=== PATIENT | female | born 1995 | race Caucasian/White ===

== ENCOUNTER 2024-04-10 01:06 | Emergency (ER) | payer SELFPAY ==
[2024-04-10 01:10] VITALS: BP 178/86; PULSE 75; TEMP 36.4; O2SAT 98; BMI 44.3
--- NOTE | 2024-04-10 01:16 | PC.NURSE ---
complains of rash and itchy to her head from hair dye onset 4 days ago. this patient has used OTC but not helping. this patient voices no other complains and shows no signs of distress
--- NOTE | 2024-04-10 01:34 | ED.SKABFB1 ---
HPI - Skin/Abscess/Foreign Bdy General Chief complaint: Skin/Abscess/Foreign Body Stated complaint: allergic reaction Time Seen by Provider: 04/10/24 01:11 Source: patient Mode of arrival: walk-in Limitations: no limitations History of Present Illness HPI narrative: patient describes an allergic reaction of her face from her new hair dye. started yesterday. Took Benadryl and hydroxyzine without benefit. No shortness of breath or swelling. No systemic symptoms Related Data Allergies Allergy/AdvReac Type Severity Reaction Status Date / Time acetaminophen (From Percocet) Allergy Severe Anaphylaxis Verified 04/10/24 01:16 Iodinated Contrast Media Allergy Severe Anaphylaxis Verified 04/10/24 01:16 morphine Allergy Severe Anaphylaxis Verified 04/10/24 01:16 oxycodone (From Percocet) Allergy Severe Anaphylaxis Verified 04/10/24 01:16 Penicillins Allergy Severe Anaphylaxis Verified 04/10/24 01:16 shellfish derived Allergy Severe Anaphylaxis Verified 04/10/24 01:16 Sulfa (Sulfonamide Allergy Severe Anaphylaxis Verified 04/10/24 01:16 Antibiotics) latex AdvReac Intermediate Hives Verified 04/10/24 01:16 Review of Systems ROS Status of ROS 10 or more systems reviewed and unremarkable except as noted in history and below Exam Constitutional Vital Signs, click to edit/add: Last Vital Signs Temp 97.5 F L 04/10/24 01:10 Pulse 75 04/10/24 01:10 Resp 16 04/10/24 01:10 BP 178/86 H 04/10/24 01:10 Pulse Ox 98 04/10/24 01:10 O2 Del Method Room Air 04/10/24 01:10 Common normals: no apparent distress, oriented x3, no limitations, healthy appearing, alert and well nourished [facility] Head images:  1. erythematous rash on her face Eye Common normals: PERRL, EOMs intact bilaterally and conjunctivae normal Respiratory Common normals: normal respiratory effort, no retractions, no use of accessory muscles and clear to auscultation bilaterally Cardio Common normals: regular rate, regular rhythm, S1 normal heart sound and S2 normal heart sound Extremity Common normals: normal to inspection and full ROM Neuro Common normals: oriented x3, CN's II-XII intact bilaterally, moves all extremities and no focal motor deficits Psych Appearance: grossly normal Course Vital Signs Vital signs: Vital Signs Temperature 97.5 F L 04/10/24 01:10 Pulse Rate 75 04/10/24 01:10 Respiratory Rate 16 04/10/24 01:10 Blood Pressure 178/86 H 04/10/24 01:10 Pulse Oximetry 98 04/10/24 01:10 Oxygen Delivery Method Room Air 04/10/24 01:10 Temperature 97.5 F L 04/10/24 01:10 Pulse Rate 75 04/10/24 01:10 Respiratory Rate 16 04/10/24 01:10 Blood Pressure 178/86 H 04/10/24 01:10 Pulse Oximetry 98 04/10/24 01:10 Oxygen Delivery Method Room Air 04/10/24 01:10 MDM - Skin/Abscess/Foreign Bdy MDM Narrative Medical decision making narrative: patient presents with contact dermatitis rash of her face from new dye she used in her hair. Treated with solumedrol and discharged home with prescription of prednisone Discharge Plan Discharge Chief Complaint: Skin/Abscess/Foreign Body Clinical Impression: Contact dermatitis Patient Disposition: Home, Self-Care Print Language: Armenian Instructions: Contact Dermatitis (ED) Additional Instructions: follow up with your doctor next week continue to use benadryl 50mg up to 3 times per day to help clear rash Discharge Date/Time: 04/10/24 02:04
[2024-04-10] MEDS: METHYLPREDNISOLONE SOD SUCC PF 125 MG/2 ML VIAL IM (01:59)
--- NOTE | 2024-04-10 02:10 | PC.NURSE ---
i gave verbal and written discharge orders along with 1 Rx, this patient voices yes to understanding these. at time of discharge this patient voices no concerns and shows no signs of distress
== END 2024-04-10 02:04 | disposition home or self-care (01) ==
LOC: ER 02:04
PROVIDERS: Emergency Provider Internal Medicine
DX: L23.89 Allergic contact dermatitis due to other agents (principal)
CPT/HCPCS: 99284; J2919

== ENCOUNTER 2024-05-14 13:00 | Emergency (ER) | payer OTHER, SELFPAY ==
[2024-05-14 13:05] VITALS: BP 166/99; PULSE 75; TEMP 36.7; O2SAT 98; BMI 43.4
--- NOTE | 2024-05-14 13:27 | ED_ITS ---
HPI HPI - General Adult General Chief complaint: Upper Respiratory Infection Stated complaint: URTI COMPLAINTS Time Seen by Provider: 05/14/24 13:07 History of Present Illness HPI narrative: 29-year-old female presents for nasal congestion, pain on the left side of her face which goes into her teeth and pressure in her head. She think she might have a sinus infection and she has had these symptoms for more than 2 weeks. No fever or productive cough. No complaints of sore throat. 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 Related Data Previous Rx's ?Medication ?Instructions ?Recorded clindamycin HCl 300 mg capsule 300 mg PO Q6H 10 days #40 caps 05/14/24 loratadine 5 mg-pseudoephedrine ER 1 tab PO Q12H PRN nasal congestion 05/14/24 120 mg tablet,extended #20 tabs release,12hr (Claritin-D 12 Hour) Allergies Allergy/AdvReac Type Severity Reaction Status Date / Time acetaminophen (From Percocet) Allergy Severe Anaphylaxis Verified 04/10/24 01:16 Iodinated Contrast Media Allergy Severe Anaphylaxis Verified 04/10/24 01:16 morphine Allergy Severe Anaphylaxis Verified 04/10/24 01:16 oxycodone (From Percocet) Allergy Severe Anaphylaxis Verified 04/10/24 01:16 Penicillins Allergy Severe Anaphylaxis Verified 04/10/24 01:16 shellfish derived Allergy Severe Anaphylaxis Verified 04/10/24 01:16 Sulfa (Sulfonamide Allergy Severe Anaphylaxis Verified 04/10/24 01:16 Antibiotics) latex AdvReac Intermediate Hives Verified 04/10/24 01:16 Opioid HPI Opioid Management Most Recent Opioid Data: No Data to Display Review of Systems ROS Narrative A ten point review of systems is negative except as noted above. PFSH PFSH Social History Little interest or pleasure in doing things: not at all Feeling down, depressed, or hopeless: not at all Exam Narrative Exam Narrative: Nurses note and vital signs reviewed and patient is not hypoxic. General: The patient appears well and in no apparent distress. Patient is resting comfortably on cart. Skin: Warm, dry, no pallor noted. There is no rash noted. Head: Normocephalic, atraumatic Eye: Normal conjunctiva, no drainage Ears, Nose, Mouth, and Throat: oral mucosa is moist. Nares patent. Both TMs and both external canals are normal. Dental condition is poor with many areas of dental caries. There is no gingival swelling or erythema. No swelling to the floor of her mouth. Cardiovascular: Regular Rate and Rhythm Respiratory: Patient is in no distress, no accessory muscle use, lungs are clear to auscultation, no wheezing, rales or rhonchi Back: non-tender GI: Soft and nontender Musculoskeletal: The patient has no evidence of calf tenderness, no pitting edema, symmetrical pulses noted bilaterally Neurological: A&O, normal speech Psychiatric: Cooperative Constitutional Vital Signs, click to edit/add: Last Vital Signs Temp 98.1 F 05/14/24 13:05 Pulse 75 05/14/24 13:05 Resp 18 05/14/24 13:05 BP 166/99 H 05/14/24 13:05 Pulse Ox 98 05/14/24 13:05 O2 Del Method Room Air 05/14/24 13:05 Course Vital Signs Vital signs: Vital Signs Temperature 98.1 F 05/14/24 13:05 Pulse Rate 75 05/14/24 13:05 Respiratory Rate 18 05/14/24 13:05 Blood Pressure 166/99 H 05/14/24 13:05 Pulse Oximetry 98 05/14/24 13:05 Oxygen Delivery Method Room Air 05/14/24 13:05 Temperature 98.1 F 05/14/24 13:05 Pulse Rate 75 05/14/24 13:05 Respiratory Rate 18 05/14/24 13:05 Blood Pressure 166/99 H 05/14/24 13:05 Pulse Oximetry 98 05/14/24 13:05 Oxygen Delivery Method Room Air 05/14/24 13:05 Medical Decision Making [facility] Narrative Medical decision making narrative: My clinical impression is that she has sinusitis. She has had her symptoms for more than 2 weeks and I will prescribe an antibiotic. She states feeling to antibiotics that she can take her doxycycline and clindamycin. Treatment diagnosis and follow-up were discussed with the patient. Differential Diagnosis Differential Diagnosis: Sinusitis, otitis media, otitis externa Discharge Plan Discharge Chief Complaint: Upper Respiratory Infection Clinical Impression: Sinusitis Patient Disposition: Home, Self-Care Time of Disposition Decision: 13:26 Condition: Good Mode of Transportation: Private Vehicle Prescriptions / Home Meds: New clindamycin HCl 300 mg capsule 300 mg PO Q6H 10 Days Qty: 40 0RF Claritin-D 12 Hour 5-120 mg tablet extended release 12 hr 1 tab PO Q12H PRN (Reason: nasal congestion) Qty: 20 0RF Print Language: Maori Instructions: Sinusitis (ED) Referrals: Physician,Non-Staff, MD [Primary Care Provider] - 1 week
== END 2024-05-14 13:45 | disposition home or self-care (01) ==
PROVIDERS: Emergency Provider Emergency Medicine
DX: J32.9 Chronic sinusitis, unspecified (principal)
CPT/HCPCS: 99283

== ENCOUNTER 2024-06-11 14:50 | Emergency (ER) | payer OTHER, SELFPAY ==
[2024-06-11 15:03] VITALS: BP 116/76; PULSE 88; TEMP 36.7; O2SAT 98; BMI 43.4
--- NOTE | 2024-06-11 15:32 | ED_ITS ---
HPI - URI/Sore Throat General Chief Complaint: Upper Respiratory Infection Stated Complaint: SINUS INFECTION Time Seen by Provider: 06/11/24 14:55 Source: patient History of Present Illness HPI Narrative: Patient is a 29-year-old female who returns to the emergency department for continued sinus symptoms, ear pressure, cough with mucus production. She states she has had vomiting and diarrhea. She was treated in this emergency department 1 month ago with clindamycin. She has not had any fevers. She states she has Zofran at home and has been using it, she has been able to drink fluids for the last several hours without vomiting. She has no concern for . No medications taken prior to arrival today. Related Data Previous Rx's ?Medication ?Instructions ?Recorded fllcoyvbtqblqix-xpliyhpxckklizl-[id number] 10 ml PO Q6H PRN cold symptoms 06/11/24 2 mg-30 mg-10 mg/5 mL oral syrup #200 mL (Bromfed DM) levofloxacin 750 mg tablet 750 mg PO DAILY 5 days #5 tabs 06/11/24 methylprednisolone 4 mg tablets in See Rx Instructions .Route 06/11/24 a dose pack (Medrol (Rich)) .COMPLEX #21 ea promethazine 25 mg tablet 25 mg PO Q6H PRN nausea and 06/11/24 vomiting #12 tabs Allergies Allergy/AdvReac Type Severity Reaction Status Date / Time acetaminophen (From Percocet) Allergy Severe Anaphylaxis Verified 06/11/24 15:03 Iodinated Contrast Media Allergy Severe Anaphylaxis Verified 06/11/24 15:03 morphine Allergy Severe Anaphylaxis Verified 06/11/24 15:03 oxycodone (From Percocet) Allergy Severe Anaphylaxis Verified 06/11/24 15:03 Penicillins Allergy Severe Anaphylaxis Verified 06/11/24 15:03 shellfish derived Allergy Severe Anaphylaxis Verified 06/11/24 15:03 Sulfa (Sulfonamide Allergy Severe Anaphylaxis Verified 06/11/24 15:03 Antibiotics) codeine Allergy Unknown Verified 06/11/24 15:03 latex AdvReac Intermediate Hives Verified 06/11/24 15:03 Review of Systems ROS Constitutional Denies: fever or chills Ears, nose, mouth, and throat Reports: ear pain and nasal congestion; Denies: throat pain Cardiovascular Denies: chest pain Respiratory Denies: shortness of breath or cough Gastrointestinal Reports: nausea, vomiting and diarrhea; Denies: abdominal pain Musculoskeletal Denies: back pain or neck pain Integumentary/Breast Denies: rash Neurological Denies: numbness in extremities or weakness in extremities Hematologic/Lymphatic Denies: easy bruising or easy bleeding PFSH [facility] Social History Little interest or pleasure in doing things: not at all Feeling down, depressed, or hopeless: not at all Exam Narrative Exam Narrative: Gen.: Awake, alert, in no distress Head: Normocephalic, atraumatic ENT: Moist mucous membranes, bilateral TMs are fluid-filled, no pharyngeal erythema Respiratory: No respiratory distress, lungs clear bilaterally, no coughing or wheezing noted Cardio: Regular rate and rhythm Extremities: Moves extremities equally Psych: Normal mood and affect Neuro: No focal neuro deficit Skin: Warm, dry, intact Constitutional Vital Signs, click to edit/add: Last Vital Signs Temp 98.1 F 06/11/24 15:03 Pulse 88 06/11/24 15:03 Resp 16 06/11/24 15:03 BP 116/76 06/11/24 15:03 Pulse Ox 98 06/11/24 15:03 O2 Del Method Room Air 06/11/24 15:03 Course Vital Signs Vital signs: Vital Signs Temperature 98.1 F 06/11/24 15:03 Pulse Rate 88 06/11/24 15:03 Respiratory Rate 16 06/11/24 15:03 Blood Pressure 116/76 06/11/24 15:03 Pulse Oximetry 98 06/11/24 15:03 Oxygen Delivery Method Room Air 06/11/24 15:03 Temperature 98.1 F 06/11/24 15:03 Pulse Rate 88 06/11/24 15:03 Respiratory Rate 16 06/11/24 15:03 Blood Pressure 116/76 06/11/24 15:03 Pulse Oximetry 98 06/11/24 15:03 Oxygen Delivery Method Room Air 06/11/24 15:03 MDM - URI/Sore Throat MDM Narrative Medical decision making narrative: Patient in no distress, well-appearing with stable vital signs. She is discharged home with Phenergan as needed for nausea, Levaquin for sinusitis which should be more effective than the clindamycin. Bromfed-DM and Medrol Dosepak for symptoms. Follow-up with PCP and return to the ER if symptoms change or worsen. Patient request a work note. SUPERVISED APC VISIT, PHYSICIAN ATTESTATION: Based on the medical record the care appears appropriate. ? Medical Records Attestation: I reviewed the patient's medical records. Discharge Plan Discharge Chief Complaint: Upper Respiratory Infection Clinical Impression: Upper respiratory infection Patient Disposition: Home, Self-Care Time of Disposition Decision: 15:30 Condition: Good Prescriptions / Home Meds: New promethazine 25 mg tablet 25 mg PO Q6H PRN (Reason: nausea and vomiting) Qty: 12 0RF levofloxacin 750 mg tablet 750 mg PO DAILY 5 Days Qty: 5 0RF methylprednisolone [Medrol (Rich)] 4 mg tablets,dose pack See Rx Instructions .ROUTE .COMPLEX Qty: 21 0RF Rx Instructions: Taper as directed ohhzfngsqjhrkev-[id number] [Bromfed DM] 2-30-10 mg/5 mL syrup 10 ml PO Q6H PRN (Reason: cold symptoms) Qty: 200 0RF Print Language: Cape Verdean Instructions: Upper Respiratory Infection (ED) Referrals: Physician,Non-Staff, MD [Primary Care Provider] - 1 week
== END 2024-06-11 15:43 | disposition home or self-care (01) ==
PROVIDERS: Emergency Provider Emergency Medicine
DX: J06.9 Acute upper respiratory infection, unspecified (principal)
CPT/HCPCS: 99283

== ENCOUNTER 2024-06-21 14:52 | Emergency (ER) | payer OTHER, SELFPAY ==
[2024-06-21 14:57] VITALS: BP 172/102; PULSE 75; TEMP 36.8; O2SAT 100; BMI 43.4
[2024-06-21 15:17] VITALS: O2SAT 100
[2024-06-21 15:21] LABS: Influenza Virus A Antigen Negative; Influenza Virus B Antigen Negative; Internal Control Within Normal Limits; SARS-CoV-2 Ag NEGATIVE (NEGATIVE)
--- NOTE | 2024-06-21 15:29 | ED_ITS ---
HPI HPI - General Adult General Chief complaint: Upper Respiratory Infection Stated complaint: HEAD CONGESTION, SORE THROAT Time Seen by Provider: 06/21/24 15:03 Source: patient Mode of arrival: walk-in Limitations: no limitations History of Present Illness HPI narrative: 29-year-old patient presents here with chief complaint of sinus congestion and pressure. She is currently for initial dose of Levaquin and clindamycin over the last couple of months. She does not have a fever. She states she does have a history of asthma. Patient does not appear toxic. She has no pain to palpat ion of the sinus region. First winter here in [place] she moved from [place] she is allergic to multiple antibiotics including penicillin and sulfa medications. Related Data Previous Rx's ?Medication ?Instructions ?Recorded albuterol sulfate 90 mcg/actuation 2 inh inhalation Q6H PRN shortness 06/21/24 aerosol inhaler of breath or wheezing #8.5 grams Allergies Allergy/AdvReac Type Severity Reaction Status Date / Time acetaminophen (From Percocet) Allergy Severe Anaphylaxis Verified 06/11/24 15:03 Iodinated Contrast Media Allergy Severe Anaphylaxis Verified 06/11/24 15:03 morphine Allergy Severe Anaphylaxis Verified 06/11/24 15:03 oxycodone (From Percocet) Allergy Severe Anaphylaxis Verified 06/11/24 15:03 Penicillins Allergy Severe Anaphylaxis Verified 06/11/24 15:03 shellfish derived Allergy Severe Anaphylaxis Verified 06/11/24 15:03 Sulfa (Sulfonamide Allergy Severe Anaphylaxis Verified 06/11/24 15:03 Antibiotics) codeine Allergy Unknown Verified 06/11/24 15:03 latex AdvReac Intermediate Hives Verified 06/11/24 15:03 Opioid HPI Opioid Management Most Recent Opioid Data: No Data to Display Review of Systems ROS Narrative All Systems are negative except as noted/marked.All systems reviewed and otherwise negative PFSH PFSH Social History Little interest or pleasure in doing things: not at all Feeling down, depressed, or hopeless: not at all Exam Narrative Exam Narrative: Nurses note and vital signs reviewed and patient is not hypoxic. General: The patient appears well and in no apparent distress. Patient is resting comfortably on cart. Skin: Warm, dry, no pallor noted. There is no rash noted. Head: Normocephalic, atraumatic facial: no facial pain or tenderness to palpation Eye: Normal conjunctiva, no drainage, EOMI. PERRL Ears, Nose, Mouth, and Throat: oral mucosa is moist. Nares patent. Mouth without vesicles. Ear canals patent. Tm's without Erythema Cardiovascular: Regular Rate and Rhythm Respiratory: Patient is in no distress, no accessory muscle use, lungs are clear to auscultation, no wheezing, rales or rhonchi Musculoskeletal: The patient has no evidence of calf tenderness, no pitting edema, symmetrical pulses noted bilaterally Neurological: A&O x4, normal speech Psychiatric: Cooperative Constitutional Vital Signs, click to edit/add: Last Vital Signs Temp 98.3 F 06/21/24 14:57 Pulse 75 06/21/24 14:57 Resp 18 06/21/24 14:57 BP 172/102 H 06/21/24 14:57 Pulse Ox 100 06/21/24 15:17 O2 Del Method Room Air 06/21/24 15:17 Course Vital Signs Vital signs: Vital Signs Temperature 98.3 F 06/21/24 14:57 Pulse Rate 75 06/21/24 14:57 Respiratory Rate 18 06/21/24 14:57 Blood Pressure 172/102 H 06/21/24 14:57 Pulse Oximetry 100 06/21/24 14:57 Oxygen Delivery Method Room Air 06/21/24 14:57 Temperature 98.3 F 06/21/24 14:57 Pulse Rate 75 06/21/24 14:57 Respiratory Rate 18 06/21/24 14:57 Blood Pressure 172/102 H 06/21/24 14:57 Pulse Oximetry 100 06/21/24 15:17 Oxygen Delivery Method Room Air 06/21/24 15:17 Medical Decision Making MDM Narrative Medical decision making narrative: Patient was swabbed today for COVID and influenza A. She does not appear toxic. Patient will be able to discharge home. Patient encouraged to use [id number]-llbtujo nasal spray such as Flonase. She can also continue using Charo-D. Patient was given a albuterol inhaler refill as well. Patient agrees with plan of care. Differential Diagnosis Differential Diagnosis: uri, viral infection, dental pain Lab Data Labs: Lab Results 06/21/24 Range/Units 15:01 Influenza Type A Ag Negative Influenza Type B Ag Negative SARS-CoV-2 Ag (CV2AG) Negative (NEGATIVE) Discharge Plan Discharge Chief Complaint: Upper Respiratory Infection Clinical Impression: Upper respiratory infection Patient Disposition: Home, Self-Care Time of Disposition Decision: 15:27 Condition: Good Prescriptions / Home Meds: New albuterol sulfate 90 mcg/actuation HFA aerosol inhaler 2 inh inhalation Q6H PRN (Reason: shortness of breath or wheezing) Qty: 8.5 0RF Print Language: Icelandic Instructions: Upper Respiratory Infection (ED) Referrals: Physician,Non-Staff, MD [Primary Care Provider] - 1 week
[2024-06-21 15:43] VITALS: BP 168/92
== END 2024-06-21 15:43 | disposition home or self-care (01) ==
PROVIDERS: Physician Assistant; Emergency Provider Emergency Medicine
DX: J06.9 Acute upper respiratory infection, unspecified (principal); J45.909 Unspecified asthma, uncomplicated; Z88.0 Allergy status to penicillin; Z88.1 Allergy status to other antibiotic agents
CPT/HCPCS: 87804; 87811; 99284